=== PATIENT | male | born 1970 | race Caucasian/White ===

== ENCOUNTER 2024-03-08 15:03 | Outpatient (CLI) | payer BC, SELFPAY ==
--- NOTE | ~2024-03-08 | CT_ITS ---
EXAMINATION:CT diagnostic chest wo con DATE: 03/08/2024 15:50 INDICATION: Chronic obstructive pulmonary disease. TECHNIQUE: Computed tomography (CT) of the chest was performed without intravenous contrast. Automate d exposure control and iterative reconstruction technique were employed. The dose-length product (DLP ) was 192.30 mGy-cm. COMPARISON: None. 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 There is minim al atelectasis bilaterally. There are a few nodules in the lungs measuring up to 3 mm. No pleural eff usion. The heart size is normal. There is a trace pericardial effusion. There are old healed right ri b fractures. There is mild chronic height loss of multiple vertebral bodies. IMPRESSION: 1. Small lung nodules, likely benign. Reviewed, dictated and finalized at location A. [facility] [employer]
== END 2024-03-08 15:04 | disposition home or self-care (01) ==
DX: J98.09 Other diseases of bronchus, not elsewhere classified (principal); J44.9 Chronic obstructive pulmonary disease, unspecified; R91.8 Other nonspecific abnormal finding of lung field
CPT/HCPCS: 71250